=== PATIENT | male | born 1950 | race Caucasian/White ===

== ENCOUNTER 2018-03-13 09:25 | Day surgery (SDC) | payer BC, MEDICARE ==
[~2018-03-13 09:25] MED LIST: ACETAMINOPHEN 1,000 MG/100 ML BTL IV ONE; CLINDAMYCIN 600MG/50ML PREMIX 600 MG/50 ML BAG IVPB ONE
[2018-03-13] MEDS ORDERED: LIDOCAINE 1% MDV (10MG/ML) 20ML VIAL SQ ONE (09:26)
[2018-03-13] MEDS ORDERED: BUPIVACAINE 0.5% W/EPI MPF 30 ML VIAL IVP ONE (09:26)
[2018-03-13] MEDS ORDERED: *PACU ONLY* KETAMINE HCL 10 MG/ML (20ML) VIAL IV ONE (09:26)
[2018-03-13] MEDS ORDERED: PROPOFOL 10 MG/ML VIAL IV ONE (09:26)
[2018-03-13] MEDS ORDERED: MORPHINE SULFATE 4MG/ML PREFILLED SYRINGE IVP ONE (09:26)
[2018-03-13] MEDS ORDERED: METHYLPREDNISOLONE 40MG/VIAL IM ONE (09:26)
--- NOTE | 2018-03-14 20:35 | Operative Note ---
DATE: 03/13/2018 PREOPERATIVE DIAGNOSIS: INTERNAL DERANGEMENT OF THE RIGHT KNEE. POSTOPERATIVE DIAGNOSIS: SMALL FLAP TEAR INVOLVING THE ANTERIOR HORN OF THE MEDIAL MENISCUS. PROCEDURE: RIGHT KNEE ARTHROSCOPY WITH PARTIAL MEDIAL MENISCECTOMY. STAFF SURGEON: TUNDE HOWARD M.D. ANESTHESIA: GENERAL. PREPARATION: CHLORAPREP. INDIVIDUAL CONSIDERATIONS: NONE. PROCEDURE: The patient was taken to the Operating Room and placed supine on the operating table. He had a successful induction of a general anesthetic. His right lower extremity was prepped and draped in the usual fashion. The patient had a superior lateral inflow cannula placed. The skin was infiltrated with 0.5% Marcaine with Epinephrine. A stab wound was made and a clear effusion was drained. The knee was inflated with normal saline. An inferior medial and an inferior lateral portal were made in a similar fashion. The arthroscope was introduced through the inferior lateral portal up into the pouch. The patellofemoral joint was basically normal, maybe some cracking a little bit on the patella but nothing to debride. Medially, it looked normal. There was a small fringe tear involving the anterior horn of the medial meniscus , which was debrided with a shaver. The articular cartilage was normal. The remainder of the meniscus was carefully probed and found to be completely normal. In the notch, the cruciates were normal. The lateral compartment structures were well-seen and probed. Except for a tiny area of insignificant grade 3 changes in the anterior aspect of the lateral tibial plateau, the remainder of the meniscus and cartilage was normal. No loose bodies were seen in the pouch or either gutter. The knee was then irrigated out with saline to remove loose floating debris. The portals were closed denia and 20 mL of 0.25 % plain Marcaine along with 4 mg of Morphine and 80 mg of Depo-Medrol were injected into the knee and a sterile Bulkee compressive dressing was applied. The patient tolerated the procedure well. Needle and sponge counts were correct. Estimated blood loss was minimal and he was taken back to Recovery in good condition. There were no complications. JOB NUMBER: [id number] [facility]
== END 2018-03-13 13:55 | disposition home or self-care (01) ==
LOC: SUR 09:25
PROVIDERS: ATTEND Orthopaedic Surgery
DX: S83.241A Other tear of medial meniscus, current injury, right knee, initial encounter (principal); J45.909 Unspecified asthma, uncomplicated
CPT/HCPCS: J1030; J2274